=== PATIENT | male | born 1950 | race Caucasian/White ===

== ENCOUNTER 2018-06-23 10:56 | Emergency (ER) | payer MEDICARE, OTHER ==
[~2018-06-23] VITALS: Ht 175.3 cm; Wt 77.3 kg
[2018-06-23 10:59] VITALS: BP 165/93
[2018-06-23] MEDS ORDERED: CEPHALEXIN500 M1 PO (12:18)
[2018-06-23] MEDS ORDERED: NORCO 325 MG-51 TA1 PO (12:18)
== END 2018-06-23 12:40 | disposition home or self-care (01) ==
LOC: ED 10:56
DX: S61.122A Laceration with foreign body of left thumb with damage to nail, initial encounter (principal); W45.8XXA Other foreign body or object entering through skin, initial encounter; Y92.009 Unspecified place in unspecified non-institutional (private) residence as the place of occurrence of the external cause
CPT/HCPCS: 90715

== ENCOUNTER → 2021-04-03 | Outpatient (CLI) | payer MEDICARE, OTHER ==
[~2021-04-03] MED LIST: CEPHALEXIN500 M1 PO; NORCO 325 MG-51 TA1 PO
== END ==
LOC: RAD 06:50
DX: M48.061 Spinal stenosis, lumbar region without neurogenic claudication (principal); M47.817 Spondylosis without myelopathy or radiculopathy, lumbosacral region; M43.16 Spondylolisthesis, lumbar region; M43.18 Spondylolisthesis, sacral and sacrococcygeal region

== ENCOUNTER → 2021-10-31 | Outpatient (CLI) | payer MEDICARE, OTHER | LOC: VAS 12:57 → RAD 13:00 → VAS 13:00 | DX: R60.0 Localized edema (principal); M25.569 Pain in unspecified knee ==